=== PATIENT | male | born 1960 | race Caucasian/White ===

== ENCOUNTER 2019-07-27 10:08 | Emergency (ER) | payer BC, OTHER ==
[2019-07-27] MEDS ORDERED: Famotidine 20 MG/2 ML SDV IVPUSH ONE (10:14)
[2019-07-27] MEDS ORDERED: Sodium Chloride 0.9% 10 ML Syringe FLUSH PRN (10:14)
[2019-07-27] MEDS ORDERED: Alum Hydrox/Mag Hydrox/Simeth 30 ML, Lidocaine 2% 15 ML PO ONE ×2 (10:15)
--- NOTE | 2019-07-27 12:16 | CR ---
Chest: Portable view of the chest was obtained. Comparison: No prior chest imaging. Heart size and mediastinum are normal. Lungs are clear with no acute parenchymal change. Bony structures are grossly intact. Impression: 1. Nothing acute is seen on portable chest x-ray. Diagnostic code #1 This report was dictated in [place] Standard Time
--- NOTE | 2019-07-27 12:38 | EDM.PDOC ---
ED HPI GENERAL MEDICAL PROBLEM - General Chief Complaint: Chest Pain Stated Complaint: [facility] Time Seen by Provider: 07/27/19 10:10 Source of Information: Reports: Patient, EMS History Limitations: Reports: No Limitations - History of Present Illness INITIAL COMMENTS - FREE TEXT/NARRATIVE: The patient presents by [facility] for chest pain. He was driving today when this started. The pain is in the mid chest and it is sharp and pressure like. He has no fever, chills, cough, shortness of breath, abdominal pain, nausea or vomiting. He has not had an DC before. He has a history of hypertension and hypercholesterolemia. He is being treated for both. He got aspirin, nitro and fentanyl on the way and he feels much better. He has no history of DVT or PE. He does not smoke. Onset: Sudden Duration: Hour(s): Location: Reports: Chest Quality: Reports: Pressure, Sharp Severity: Moderate Improves with: Reports: None Worsens with: Reports: None Associated Symptoms: Reports: Chest Pain. 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: Aspirin x4, 50 fentanyl, and nitro spray given by [facility] - Related Data Allergies Allergy/AdvReac Type Severity Reaction Status Date / Time Latex, Natural Rubber Allergy Blisters Verified 07/27/19 10:22 Past Medical History Cardiovascular History: Reports: High Cholesterol, Hypertension - Infectious Disease History Infectious Disease History: Reports: Chicken Pox, Measles, Shingles Social & Family History - Tobacco Use Smoking Status *Q: Never Smoker ED ROS GENERAL - Review of Systems Review Of Systems: See Below Constitutional: Reports: No Symptoms HEENT: Reports: No Symptoms Respiratory: Reports: No Symptoms Cardiovascular: Reports: Chest Pain Endocrine: Reports: No Symptoms GI/Abdominal: Reports: No Symptoms : Reports: No Symptoms Musculoskeletal: Reports: No Symptoms ED EXAM, GENERAL - Physical Exam Exam: See Below Exam Limited By: No Limitations General Appearance: Alert, No Apparent Distress Ears: Normal External Exam Nose: Normal Inspection Head: Atraumatic, Normocephalic Neck: Normal Inspection Respiratory/Chest: No Respiratory Distress, Lungs Clear, Normal Breath Sounds Cardiovascular: Regular Rate, Rhythm, No Edema, No Murmur GI/Abdominal: Soft, Non-Tender, No Organomegaly, No Mass Back Exam: Normal Inspection Extremities: Normal Inspection EKG INTERPRETATION EKG Date: 07/27/19 Time: 10:38 Rhythm: NSR Rate (Beats/Min): 89 [place]: Normal P-Wave: Present QRS: Normal ST-T: Normal QT: Normal Course - Vital Signs Last Recorded V/S: Last Vital Signs Temp 97.7 F 07/27/19 10:16 Pulse 95 07/27/19 10:16 Resp 20 07/27/19 10:16 BP 153/98 H 07/27/19 10:16 Pulse Ox 93 L 07/27/19 10:16 - Orders/Labs/Meds Orders: Active Orders 24 hr Category Date Time Status Cardiac Monitoring [RC] . DIRECTED Care 07/27/19 10:14 Active EKG Documentation Completion [RC] ASDIRECTED Care 07/27/19 13:06 Active EKG Documentation Completion [RC] STAT Care 07/27/19 10:14 Active Oxygen Therapy [RC] PRN Care 07/27/19 10:14 Active Peripheral IV Care [RC] . DIRECTED Care 07/27/19 10:14 Active Sodium Chloride 0.9% [Saline Flush] Med 07/27/19 10:14 Active 10 ml FLUSH ASDIRECTED PRN Peripheral IV Insertion Adult [OM.PC] Stat Oth 07/27/19 10:14 Ordered EKG 12 Lead [EK] Stat Ther 07/27/19 13:06 Ordered Medication Orders Sodium Chloride (Saline Flush) 10 ml FLUSH ASDIRECTED PRN PRN Reason: Keep Vein Open Last Admin: 07/27/19 11:20 Dose: 10 ml Labs: Laboratory Tests 07/27/19 07/27/19 07/27/19 Range/Units 10:33 10:33 10:33 WBC 5.96 (4.23-9.07) K/mm3 RBC 4.84 (4.63-6.08) M/mm3 Hgb 15.8 (13.7-17.5) gm/dl Hct 46.2 (40.1-51.0) % MCV 95.5 H (79.0-92.2) fl MCH 32.6 H (25.7-32.2) pg MCHC 34.2 (32.2-35.5) g/dl RDW Std Deviation 43.5 (35.1-43.9) fL Plt Count 261 (163-337) K/mm3 MPV 9.9 (9.4-12.3) fl Neut % (Auto) 52.3 (34.0-67.9) % Lymph % (Auto) 30.0 (21.8-53.1) % [place] % (Auto) 13.4 H (5.3-12.2) % Eos % (Auto) 2.9 (0.8-7.0) Baso % (Auto) 1.2 (0.1-1.2) % Neut # (Auto) 3.12 (1.78-5.38) K/mm3 Lymph # (Auto) 1.79 (1.32-3.57) K/mm3 [place] # (Auto) 0.80 (0.30-0.82) K/mm3 Eos # (Auto) 0.17 (0.04-0.54) K/mm3 Baso # (Auto) 0.07 (0.01-0.08) K/mm3 D-Dimer, Quantitative 0.31 (0.19-0.50) mg/L Sodium 134 L (136-145) mEq/L Potassium 4.3 (3.5-5.1) mEq/L Chloride 100 (98-107) mEq/L Carbon Dioxide 28 (21-32) mEq/L Anion Gap 10.3 (5-15) BUN 12 (7-18) mg/dL Creatinine 1.0 (0.7-1.3) mg/dL Est Cr Clr Drug Dosing 90.53 mL/min Estimated GFR (MDRD) > 60 (>60) mL/min BUN/Creatinine Ratio 12.0 L (14-18) Glucose 111 H (74-106) mg/dL Calcium 9.3 (8.5-10.1) mg/dL Total Bilirubin 0.8 (0.2-1.0) mg/dL AST 15 (15-37) U/L ALT 46 (16-63) U/L Alkaline Phosphatase 40 L (46-116) U/L Troponin I < 0.017 (0.00-0.056) ng/mL Total Protein 7.7 (6.4-8.2) g/dl Albumin 3.8 (3.4-5.0) g/dl Globulin 3.9 gm/dL Albumin/Globulin Ratio 1.0 (1-2) 07/27/19 Range/Units 13:20 WBC (4.23-9.07) K/mm3 RBC (4.63-6.08) M/mm3 Hgb (13.7-17.5) gm/dl Hct (40.1-51.0) % MCV (79.0-92.2) fl MCH (25.7-32.2) pg MCHC (32.2-35.5) g/dl RDW Std Deviation (35.1-43.9) fL Plt Count (163-337) K/mm3 MPV (9.4-12.3) fl Neut % (Auto) (34.0-67.9) % Lymph % (Auto) (21.8-53.1) % [place] % (Auto) (5.3-12.2) % Eos % (Auto) (0.8-7.0) Baso % (Auto) (0.1-1.2) % Neut # (Auto) (1.78-5.38) K/mm3 Lymph # (Auto) (1.32-3.57) K/mm3 [place] # (Auto) (0.30-0.82) K/mm3 Eos # (Auto) (0.04-0.54) K/mm3 Baso # (Auto) (0.01-0.08) K/mm3 D-Dimer, Quantitative (0.19-0.50) mg/L Sodium (136-145) mEq/L Potassium (3.5-5.1) mEq/L Chloride (98-107) mEq/L Carbon Dioxide (21-32) mEq/L Anion Gap (5-15) BUN (7-18) mg/dL Creatinine (0.7-1.3) mg/dL Est Cr Clr Drug Dosing mL/min Estimated GFR (MDRD) (>60) mL/min BUN/Creatinine Ratio (14-18) Glucose (74-106) mg/dL Calcium (8.5-10.1) mg/dL Total Bilirubin (0.2-1.0) mg/dL AST (15-37) U/L ALT (16-63) U/L Alkaline Phosphatase (46-116) U/L Troponin I < 0.017 (0.00-0.056) ng/mL Total Protein (6.4-8.2) g/dl Albumin (3.4-5.0) g/dl Globulin gm/dL Albumin/Globulin Ratio (1-2) Meds: Medications Generic Name Dose Route Start Last Admin Trade Name Phylicia PRN Reason Stop Dose Admin Sodium Chloride 10 ml 07/27/19 10:14 07/27/19 11:20 Saline Flush FLUSH 10 ml ASDIRECTED PRN Administration Keep Vein Open Discontinued Medications Generic Name Dose Route Start Last Admin Trade Name Freq PRN Reason Stop Dose Admin Al Hydroxide/Mg Hydroxide 30 0 ml 07/27/19 10:15 07/27/19 10:28 ml/ Lidocaine HCl 15 ml PO 07/27/19 10:16 15 ml ONETIME ONE Administration Famotidine 20 mg 07/27/19 10:14 07/27/19 10:29 Pepcid IVPUSH 07/27/19 10:15 20 mg ONETIME ONE Administration - Re-Assessments/Exams Free Text/Narrative Re-Assessment/Exam: 07/27/19 12:43 I ordered an IV saline lock, EKG, CXR, labs, pepcid 20mg IV and GI cocktail. His EKG shows a NSR with no acute changes. His CXR looks good. His CBC looks good. His Na is low at 134. His troponin is negative. His D-dimer is negative. He feels better. I will do a repeat troponin and EKG. 07/27/19 14:22 His repeat troponin is negative. I will discharge him home. Departure - Departure Time of Disposition: 14:30 Disposition: Home, Self-Care 01 Condition: Good Clinical Impression: Atypical chest pain Referrals: PCP,None [Primary Care Provider] - Forms: ED Department Discharge Additional Instructions: Go home and rest today. Follow up with your doctor within a week. Please return if you are worse. - My Orders Last 24 Hours: My Active Orders 07/27/19 10:14 Cardiac Monitoring [RC] . DIRECTED EKG Documentation Completion [RC] STAT Oxygen Therapy [RC] PRN Peripheral IV Care [RC] . DIRECTED Sodium Chloride 0.9% [Saline Flush] 10 ml FLUSH ASDIRECTED PRN Peripheral IV Insertion Adult [OM.PC] Stat 07/27/19 13:06 EKG Documentation Completion [RC] ASDIRECTED EKG 12 Lead [EK] Stat - Assessment/Plan Last 24 Hours: My Active Orders 07/27/19 10:14 Cardiac Monitoring [RC] . DIRECTED EKG Documentation Completion [RC] STAT Oxygen Therapy [RC] PRN Peripheral IV Care [RC] . DIRECTED Sodium Chloride 0.9% [Saline Flush] 10 ml FLUSH ASDIRECTED PRN Peripheral IV Insertion Adult [OM.PC] Stat 07/27/19 13:06 EKG Documentation Completion [RC] ASDIRECTED EKG 12 Lead [EK] Stat
== END 2019-07-27 14:37 | disposition home or self-care (01) ==
LOC: JD.ED 10:08
DX: R07.89 Other chest pain (principal)
CPT/HCPCS: 36415; 71045; 80053; 84484; 85025; 85379; 93005; 96374; 99285; A9270; J3490; 93010; 99283